=== PATIENT | male | born 1995 | race Caucasian/White ===

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

== ENCOUNTER 2018-10-22 19:53 | Emergency (ER) | payer OTHER ==
[~2018-10-22] VITALS: Ht 177.8 cm; Wt 73.6 kg
[2018-10-22] MEDS ORDERED: IBUPROFEN 800 MG TABLET PO ONE (22:00)
[2018-10-22] MEDS ORDERED: CYCLOBENZAPRINE HCL 10 MG TABLET PO ONE (22:00)
[2018-10-22 22:11] VITALS: BP 142/72
== END 2018-10-22 22:12 | disposition home or self-care (01) ==
LOC: EMS 19:54
DX: S13.4XXA Sprain of ligaments of cervical spine, initial encounter (principal); F17.210 Nicotine dependence, cigarettes, uncomplicated; F12.90 Cannabis use, unspecified, uncomplicated; V49.9XXA Car occupant (driver) (passenger) injured in unspecified traffic accident, initial encounter; Y93.89 Activity, other specified; Y92.488 Other paved roadways as the place of occurrence of the external cause; Y99.8 Other external cause status

== ENCOUNTER 2019-05-26 15:34 | Emergency (ER) | payer OTHER ==
[~2019-05-26] VITALS: Ht 180.3 cm; Wt 84.5 kg
[2019-05-26 15:38] VITALS: BP 141/78
[2019-05-26] MEDS ORDERED: IBUPROFEN 400 MG TABLET PO ONE (17:00)
== END 2019-05-26 18:11 | disposition home or self-care (01) ==
LOC: EMS 15:39
DX: S93.402A Sprain of unspecified ligament of left ankle, initial encounter (principal); F17.210 Nicotine dependence, cigarettes, uncomplicated; X50.9XXA Other and unspecified overexertion or strenuous movements or postures, initial encounter; Y93.89 Activity, other specified; Y92.89 Other specified places as the place of occurrence of the external cause; Y99.8 Other external cause status

== ENCOUNTER 2020-03-26 23:40 | Emergency (ER) | payer OTHER ==
[~2020-03-26] VITALS: Ht 182.9 cm; Wt 100.0 kg
[2020-03-27] MEDS ORDERED: IBUPROFEN 600 MG TABLET PO ONE (01:00)
[2020-03-27 01:02] VITALS: BP 130/77
== END 2020-03-27 01:31 | disposition home or self-care (01) ==
LOC: EMS 23:40
DX: S39.012A Strain of muscle, fascia and tendon of lower back, initial encounter (principal); F17.210 Nicotine dependence, cigarettes, uncomplicated; V49.9XXA Car occupant (driver) (passenger) injured in unspecified traffic accident, initial encounter; Y93.89 Activity, other specified; Y92.488 Other paved roadways as the place of occurrence of the external cause; Y99.8 Other external cause status
CPT/HCPCS: 72100